=== PATIENT | male | born 1990 | race Caucasian/White ===

== ENCOUNTER 2016-11-18 18:22 | Emergency (ER) | payer OTHER ==
[~2016-11-18] VITALS: Ht 177.8 cm; Wt 84.1 kg
[2016-11-18] MEDS ORDERED: IBUPROFEN 800 MG TAB PO ONE (18:45)
[2016-11-18] MEDS ORDERED: NAPR500T PO (19:13)
[2016-11-18 19:17] VITALS: BP 124/68
--- NOTE | 2016-11-18 19:20 | REP ---
REASON: Pain after trauma. PRIORS: None. FINDINGS: The compartments are symmetric and relatively well maintained. There is no acute fracture or destructive osseous lesion. Signed by Van Smith DO 11/18/2016 07:35 P
== END 2016-11-18 19:26 | disposition home or self-care (01) ==
LOC: M ED 18:22
DX: S83.421A Sprain of lateral collateral ligament of right knee, initial encounter (principal); W50.0XXA Accidental hit or strike by another person, initial encounter; Y92.139 Unspecified place military base as the place of occurrence of the external cause; Y93.89 Activity, other specified; Y99.1 Military activity; F17.210 Nicotine dependence, cigarettes, uncomplicated